=== PATIENT | male | born 1970 ===

== ENCOUNTER 2023-01-14 10:16 | Inpatient (IN) | payer OTHER ==
[~2023-01-14] VITALS: Ht 165.1 cm; Wt 98.0 kg
[2023-01-14] MEDS ORDERED: IRBESARTAN-HCT1 EAC1 PO (10:52)
[2023-01-14] MEDS ORDERED: TOPROL XL50 M1 PO (10:53)
[2023-01-14] MEDS ORDERED: JENTADUETO XR1 EAC1 PO (10:53)
[2023-01-19] MEDS ORDERED: GLIMEPIRIDE1 M1 (10:39)
[2023-01-19] MEDS ORDERED: FLONASE16 GM (10:40)
[2023-01-19] MEDS ORDERED: METOPROLOL TART50 MG (10:40)
[2023-01-21] MEDS ORDERED: CYCLOBENZAPRINE10 MG PO (09:11)
[2023-01-21] MEDS ORDERED: TRAM1TAB98 PO (09:12)
[2023-01-21] MEDS ORDERED: INTESTINEX680 M1 PO (09:12)
== END 2023-01-21 12:36 | disposition home or self-care (01) | DRG 331 ==
LOC: O/R 01-18 06:47 → SURG 01-18 10:51
PROVIDERS: ADMIT Surgery; ATTEND Surgery
PROC: 0DTF4ZZ Resection of Right Large Intestine, Percutaneous Endoscopic Approach (ICD-10-PCS; principal; 2023-01-18 11:45)
PROC: 4A12X4Z Monitoring of Cardiac Electrical Activity, External Approach (ICD-10-PCS; 2023-01-19)
DX: D12.2 Benign neoplasm of ascending colon (principal); I11.9 Hypertensive heart disease without heart failure; E11.9 Type 2 diabetes mellitus without complications; Z79.4 Long term (current) use of insulin